=== PATIENT | male | born 1960 ===

== ENCOUNTER 2020-01-12 17:36 | Emergency (ER) | payer SELFPAY ==
[2020-01-12] MEDS ORDERED: IBUPROFEN 800 MG TAB PO ONE (18:05)
--- NOTE | 2020-01-12 18:05 | Emergency Department Report ---
ED Fever HPI - General Chief Complaint: Upper Respiratory Infection Stated Complaint: SOB/COUGH/BACKPAIN PUI?: Yes Time Seen by Provider: 01/12/20 17:59 Source: patient Exam Limitations: no limitations - History of Present Illness Initial Comments: cc: "I have a really bad cough." HPI: This is a 59-year-old male with history of hypertension, diabetes mellitus who presents with shortness of breath cough for 10 days. He was diagnosed with COVID-19 at [facility]. He has chest pain when he coughs radiating to the back. He visited his family in [place]. He had multiple sick contacts during his visit. Chest pain 6 out of 10 achiness. Feels like chest irritation. Gradual onset of symptoms. Mild symptomatic relief with NyQuil. Timing/Duration: constant, other (10 days) Fever Severity/Quality: greater than 102 F Fever Therapy [employer]: cold remedies Associated Symptoms: chest pain, cough, shortness of breath ED Review of Systems ROS: Stated complaint: SOB/COUGH/BACKPAIN Other details as noted in HPI Comment: All other systems reviewed and negative Constitutional: chills, fever, malaise Respiratory: cough, shortness of breath Cardiovascular: chest pain Gastrointestinal: denies: abdominal pain, nausea, vomiting ED Past Medical Hx - Past Medical History Previous Medical History?: Yes Hx Hypertension: Yes Hx Diabetes: Yes - Social History Smoking Status: Current Every Day Smoker Substance Use Type: None - Medications Home Medications: Home Medications Medication Instructions Recorded Confirmed Last Taken Type Azithromycin [Zithromax TAB] 1 tab PO DAILY 4 Days #4 tab 01/12/20 Unknown Rx Hydrocodone/Chlorphen P-Stirex 5 ml PO BID 7 Days #70 ml 01/12/20 Unknown Rx [Tussionex Pennkinetic Susp] ED Physical Exam - General Limitations: No Limitations General appearance: alert, in no apparent distress - Head Head exam: Present: atraumatic, normocephalic - Eye Eye exam: Present: normal appearance - ENT ENT exam: Present: mucous membranes moist - Neck Neck exam: Present: normal inspection, full ROM - Respiratory Respiratory exam: Present: normal lung sounds bilaterally. Absent: respiratory distress, wheezes, rales, rhonchi - Cardiovascular Cardiovascular Exam: Present: normal rhythm, tachycardia, normal heart sounds. Absent: systolic murmur, diastolic murmur, rubs, gallop - GI/Abdominal GI/Abdominal exam: Present: soft, normal bowel sounds. Absent: distended, tenderness, guarding, rebound - Rectal Rectal exam: Present: deferred - Extremities Exam Extremities exam: Present: normal inspection - Neurological Exam Neurological exam: Present: alert, oriented X3 - Psychiatric Psychiatric exam: Present: normal affect, normal mood - Skin Skin exam: Present: warm, dry, intact, normal color. Absent: rash ED Course Vital Signs 01/12/20 01/12/20 01/12/20 17:46 17:53 18:00 Temperature 102.6 F H Pulse Rate 114 H 110 H Respiratory 20 34 H Rate Blood Pressure 126/70 126/70 127/71 O2 Sat by Pulse 94 96 Oximetry 01/12/20 01/12/20 01/12/20 18:30 19:00 19:08 Temperature 103.3 F H Pulse Rate 107 H 107 H Respiratory 33 H 34 H 34 H Rate Blood Pressure 124/73 111/68 O2 Sat by Pulse 96 Oximetry ED Medical Decision Making - Radiology Data Radiology results: report reviewed Questionable retrocardiac opacity could represent developing pneumonia according to my review of chest radiograph as well as radiograph as well as radiology impression - Medical Decision Making COVID-19 pneumonia. Patient has been improving over the last 10 days. He states that he has regained his sense of taste and smell. He also has improved appetite. The severity of the cough with mucus production concerned him. I have prescribed azithromycin as well as Tussionex. Patient's pulse oximetry is 95 to 97% on room air which is normal. Patient given return precautions. Critical care attestation.: If time is entered above; I have spent that time in minutes in the direct care of this critically ill patient, excluding procedure time. ED Disposition Clinical Impression: COVID-19, Pneumonia due to COVID-19 virus Disposition: - TO HOME OR SELFCARE Is pt being admited?: No Does the pt Need Aspirin: No Condition: Stable Instructions: COVID-19 Prescriptions: Hydrocodone/Chlorphen P-Stirex [Tussionex Pennkinetic Susp] 5 ml PO BID 7 Days #70 ml Azithromycin [Zithromax TAB] 1 tab PO DAILY 4 Days #4 tab Referrals: PRIMARY MD CALDERON [Primary Care Provider] - 3-5 Days KELLY CHAMPION MD [Staff Physician] - 3-5 Days
[2020-01-12] MEDS ORDERED: AZITHROMYCIN 250 MG TAB PO ONE (19:36)
--- NOTE | 2020-01-12 20:07 | XRay Report ---
CHEST 1 VIEW 01/12/2020 6:02 PM INDICATION / CLINICAL INFORMATION: fever dyspnea. COMPARISON: None available. FINDINGS: SUPPORT DEVICES: None. HEART / MEDIASTINUM: No significant abnormality. LUNGS / PLEURA: Questionable retrocardiac opacity. No pneumothorax. ADDITIONAL FINDINGS: No significant additional findings. IMPRESSION: Questionable retrocardiac opacity could represent developing pneumonia. Recommend PA and lateral view s of the chest for further evaluation. Signer Name: Juan A Vazquez MD Signed: 01/12/2020 8:03 PM Workstation Name: [id number]
[2020-01-12] MEDS ORDERED: ACETAMINOPHEN 500 MG TAB PO ONE (20:18)
[2020-01-12 21:41] VITALS: BP 94/55
== END 2020-01-12 21:50 | disposition home or self-care (01) ==
LOC: ED 17:36
DX: U07.1 COVID-19 (principal); J18.8 Other pneumonia, unspecified organism; E11.9 Type 2 diabetes mellitus without complications; I10 Essential (primary) hypertension
CPT/HCPCS: 71045